=== PATIENT | female | born 1970 | race Caucasian/White ===

== ENCOUNTER 2025-07-06 22:30 | Outpatient (CLI) | payer BC, SELFPAY | END 2025-07-06 22:31 | disposition home or self-care (01) | LOC: AMB 07-09 18:52 | PROVIDERS: PCP Family Medicine; Visit Provider Emergency Medicine | DX: R55 Syncope and collapse (principal); R19.7 Diarrhea, unspecified | CPT/HCPCS: A0425; A0427 ==

== ENCOUNTER 2025-07-06 23:21 | Emergency (ER) | payer BC, SELFPAY ==
--- OUTSIDE RECORDS SUMMARY | 2025-07-06 23:23 | XMS_ITS | Clinical Summary ---
Author Organization [employer] [facility] Address [address] [place] [address] Care Team Providers Care Front Desk Supervisor Name Role Phone Renetta Partida MD Primary Care Provide r Allergies Active AllergyReactionsCriticalityNoted DateCommentsAspartameHeadacheLow 04/21/2011 Medications MedicationSigDispense QuantityRefillsLast FilledStart DateEnd DateStatus meclizine (ANTIVERT) 25 mg tablet Indications:Multiple sclerosisTake 1 tablet by mouth 3 times daily if needed. 100 tablet ctive acetaminophen (TYLENOL EXTRA STRGTH) 500 mg tablet Take 2 tablets by mouth every 6 hours if needed. Max acetaminophen dose: 4000mg in 24 hrs.Active cholecalciferol (Vitamin D-3) 2,000 unit capsule Take 1 Capsule (2,000 units) by mouth once daily.ctive vit A and D3 in cod liver oiL (cod liver oil) 1,250-135 unit cap Take by mouth.ctive triamcinolone (ARISTOCORT; KENALOG) 0.1 % cream Indications:RashApply topically to affected area(s) 3 times daily. 45 g ctive azithromycin (Zithromax Z-Jamari) 250 mg tablet Indications:Pneumonia of right middle lobe due to Streptococcus pneumoniaeTake 500 mg today and then 250 mg days 2-5 6 Tablet 5Active gabapentin (NEURONTIN) 600 mg tablet Indications:Multiple sclerosisTake 1 Tablet (600 mg) by mouth three times daily. 270 Tablet 5Active Ventolin HFA 90 mcg/actuation inhaler Indications:Mild intermittent asthma without complication (HC)Inhale 1-2 Puffs by mouth every 4 hours if needed for Shortness Of Breath. 18 g 5Active amoxicillin-clavulanate (AUGMENTIN) 875-125 mg tablet Indications:Pneumonia of right lower lobe due to infectious organismTake 1 Tablet by mouth every 12 hours for 7 days. 14 Tablet /5Active azithromycin (Zithromax Z-Jamari) 250 mg tablet Indications:lower respiratory infectionTake 500 mg today and then 250 mg days 2-5 6 Tablet 5Active Active Problems ProblemNoted DateDiagnosed DateVaginal Pap smear following hysterectomy for /02/2024Seronegative rheumatoid qhtwbuzki39/06/2022History of COVID-19007/25/2021ervical bxhrdqjvpqexx29/26/2018Mild intermittent asthma without zrfmydnxfvri45/18/2598Faqszfjb63/22/2013Multiple nvtgekklz56/20/2007 Resolved Problems ProblemNoted DateDiagnosed DateResolved DateUnspecified asthma(493.90)11/06/2006 06/06/2015 Encounters DateTypeDepartmentCare KpcuCkfdmdojnkz20/11/2025 2:00 PM CSTOffice Visit [facility] [address] [place] [address] Renetta Partida MD Physical (54 yo Female/Occasionally hears heart beat in right ear)05/30/2025 Hlcfli1205/27/20254904Hqhfoe88/04/2025 8:10 AM CSTAncillary Procedure [facility] [address] [facility] [place] [address] 05/23/20257507Eubtmy32/31/2025Travelfrom Last 3 Months Immunizations ImmunizationAdministration DatesNext DueTd, Preservative Free (age >= 7 Years) 10/31/2024,03/02/2009Tuberculin (PPD)02/11/2017,01/27/2017,08/23/2009 Family History Medical HistoryRelationNameCommentsHeart DiseaseBrother 1WilliamCancer-prostate FatherWilliamHeart DiseaseFatherWilliamHyperlipidemiaFatherWilliamOtherMother JoanIritis, polymyalgia rheumaticaRheum arthritisSisterAnneCancer-breastNo Family HistoryRelationNameStatusCommentsBrother 1WilliamAliveBrother 2Daniel AliveBrother 3PatrickAliveDaughterKathrynAliveFatherWilliamDeceasedMaternal GrandfatherDeceasedMaternal GrandmotherDeceasedMotherJoanAlivePaternal GrandfatherDeceasedPaternal GrandmotherDeceasedSisterAnneAliveSon 1NicholasAlive Son 2ZacheryAliveSon 3BenjaminAlive Social History Tobacco UseTypesPacks/DayYears UsedDateSmoking Tobacco: Every YpdNwhciyghoz444 Started: 1985Smokeless Tobacco: Never Tobacco Cessation:Ready to Q uit: Not Asked; Counseling Given: Not Answered Alcohol UseStandard Drinks/WeekCommentsNot Currently0 (1 standard drink = 0.6 oz pure alcohol)PHQ-2AnswerDate RecordedPHQ-2 TOTAL OGUEJ862Social ConnectionsAnswerDate RecordedDo you often feel lonely or isolated from those around you?lcohol UseAnswerDate RecordedHow often do you have a drink containing alcohol?How many drinks containing alcohol do you have on a typical day when you are drinking?How often do you have five or more drinks on one occasion?Financial Resource StrainAnswer Date RecordedDifficulty of Paying Living Owlqmpzj764/11/2025Difficulty of Paying Living ExpensesNot on file05/30/2025Food InsecurityAnswerDate RecordedDo you worry your food will run out before you are able to buy more? Transportation NeedsAnswerDate RecordedDoes lack of transportation keep you from medical appointments?Does lack of transportation keep you from work, meetings or getting things that you need?Housing StabilityAnswerDate RecordedWhat is your housing situation today?UtilitiesAnswerDate RecordedDo you have trouble paying for utilities (for example, heat, electricity, water, phone)?CommentsNoSex and Gender InformationValueDate RecordedSex Assigned at BirthNot on fileLegal SexFemale 08/02/2012 5:24 AM CSTGender IdentityNot on fileSexual OrientationStraight 07/24/2021 5:12 PM [facility] Obstetrics History GravidaParaTermPretermABIABSABEctopicMultipleLivingLive [id number] OutcomeGATotal LaborLabor/2nd/7qgQdxadrLwdQlmvMpapICXVafQ0A9SyuoWsjvYnckHajtYheo TermPara Last Filed Vital Signs Vital SignReadingTime TakenCommentsBlood Kvrtdxae369/7605/30/2025 2:05 PM [facility] [facility] Eegvj586605/30/2025 2:05 PM PMAAxbkvrqjfia23.3 ??C (97.4 ??F)08/04/2018 11:17 AM CSTRespiratory Hvob452607/22/2022 8:58 AM CDTOxygen Colhuttlpo504%05/30/2025 2:05 PM CSTInhaled Oxygen Concentration--Asnmat59.4 kg (133 lb 3.2 oz)05/30/2025 2:05 PM VKINylpvh740.9 cm (5' 6.5)05/30/2025 2:05 PM CSTBody Mass Index21.18 05/30/2025 2:05 PM [facility] Plan of Treatment DateTypeDepartmentCare Team (Latest Contact Info)Pxbfemautts04/05/2026 8:10 AM CSTAncillary Procedure [facility] [address] [place] [address] Health MaintenanceDue DateLast DoneCommentsHIV for age 15-65011/06/1983Hepatitis C screening for age 18-7904Hepatitis B series for 19+ (1 of 3 - 19+ 3- dose series)11/06/1987Pneumococcal series for age 50+ (1 of 2 - PCV)11/06/1987 Zoster (shingles) series for age 50+ (1 of 2)2018COVID-19 vaccine series (1 - 2024-26 season)2025Influenza Vaccine (#1)2025Mammogram for age 45-75, 04/23/2021, 08/16/2019, Additional history exists Fecal testing sDNA-FIT (Cologuard) for age 45-[address]Low Dose CT (for lung CA) age 50-801//10/2024, 11/24/2023, 05/14/2023, Additional history existsBMI (ht and wt on same day) for age 18+/05/2025, 04/29/2024, 05/22/2023, Additional history existsDepression screening for age 12+, 04/25/2022, 04/09/2021, Additional history existsLipids for age 45-75, 04/09/2021, 06/18/2018, Additional history existsTetanus zbtytvr69, 03/02/2009RSV vaccine for adults or (1 - 1-dose 75+ series)11/06/2043 Procedures Procedure NamePriorityDate/TimeAssociated DiagnosisCommentsCT CHEST SCREENING LOW DOSE WO XPANLZSFSfewutl97/04/2025 8:19 AM [facility] Encounter for screening for lung cancer Cigarette smoker XR MAMMO JULIO CESAR BILAT JIIAXRLleqdpu33/15/2024 7:58 AM CDT Visit for screening mammogram LIPID PANEL W REFLEX MEASURED WYWCdybnvi86/20/2023 7:46 AM CDT Lipid screening SDNA-FIT EXTERNAL (COLOGUARD)Quamuud0505/12/2022 6:30 AM CDT Screening for colon cancer from Last 3 Months or Most Recently Relevant to Health Maintenance Results * CT CHEST SCREENING LOW DOSE WO CONTRAST (05/23/2025 8:19 AM [facility] [facility])Anatomical RegionLateralityModalityComputed TomographySpecimen (Source)Anatomical Location / LateralityCollection Method / VolumeCollection TimeReceived Time Impressions 05/24/2025 10:33 AM [facility] [facility] Right lower lobe pneumonia, possibly aspiration pneumonia. LUNG-RADS CATEGORY 0: INCOMPLETE Additional lung cancer screening CT images and/or comparison to prior chest CT examinations is needed. ?? Findings are suggestive of inflammatory or infectious process. RECOMMENDATION: 1-3 month follow-up low-dose CT. Please note that all CT scans at this facility use dose modulation, iterative reconstruction and/or weight-based dosing when appropriate to reduce radiation dose to as low as reasonably achievable. ?? Dictated by: Eduar Jimenez MD @05/23/2025 12:22:24 PM /sp Narrative 05/24/2025 10:33 AM [facility] For Patients: As a result of the Century Cures Act, medical imaging exams and procedure reports are released immediately into your electronic medical record. ??You may view this report before your referring provider. ?? If you have questions, please contact your health care provider. CT CHEST SCREENING LOW-DOSE WITHOUT CONTRAST 05/23/2025 INDICATION: Lung cancer screening. History of smoking. TECHNIQUE: Low-dose lung cancer screening non-contrast CT chest. Dose reduction techniques were used. COMPARISON: 11/24/[address] FINDINGS: NODULES: Ground-glass opacities and subcentimeter nodularity in the right lung apex are stable and likely due to scarring. LUNGS AND PLEURA: New area of airspace consolidation with adjacent solid and ground-glass nodularity in the medial right lower lobe. Associated bronchial wall thickening and impaction. Emphysema. MEDIASTINUM: 4 cm ascending aorta, unchanged. CORONARY ARTERY CALCIFICATION: None. LIMITED UPPER ABDOMEN: Normal. MUSCULOSKELETAL: Normal. Authorizing ProviderResult TypeResult StatusRorye Lorena Partida MDCTFinal Result * XR MAMMO JULIO CESAR BILAT SCREEN (05/03/2024 7:58 AM CDT)Anatomical RegionLaterality ModalityBREASTS, Breast Left, Breast RightBilateralMammographySpecimen (Source)Anatomical Location / LateralityCollection Method / VolumeCollection TimeReceived Time Impressions 05/03/2024 2:45 PM CDT There is no radiographic evidence for malignancy. Recommend annual mammograms. MAMMOGRAM ASSESSMENT: ??ACR 1 Negative PATIENTS: You will also receive a letter with your examination results in an easy to read format. ??If you have questions about your results, please contact your referring provider. Narrative 05/03/2024 2:45 PM CDT For Patients: As a result of the Century Cures Act, medical imaging exams and procedure reports are released immediately into your electronic medical record. You may view this report before your referring provider. If you have questions, please contact your health care provider. XR MAMMO JULIO CESAR BILAT SCREEN [[id number]] CLINICAL HISTORY: ??This is an asymptomatic 53 y.o. patient. INDICATION FOR EXAM: Mammogram Screening. TECHNIQUE: CC & MLO views were obtained. This study was evaluated with the assistance of Computer-Aided Detection. Breast Tomosynthesis was used in interpretation. COMPARISON FILM: Yes 04/23/21 [facility] 08/16/19 [facility] FINDINGS: ??The breasts are heterogeneously dense, which may obscure small masses. There are no dominant masses, suspicious micro calcifications or areas of architectural distortion. Authorizing ProviderResult TypeResult StatusRorye Lorena Partida MDMAMMOFinal Result * LIPID PANEL W REFLEX MEASURED LDL (05/08/2023 7:46 AM CDT)ComponentValueRef RangeTest MethodAnalysis TimePerformed AtPathologist Signature CHOLESTEROL,[id number] - 199 mg/dL05/08/2023 3:17 PM [facility]-C[facility]TRAL LABORATORYComment: Cholesterol, Total Reference Ranges Desirable <200 mg/dL Borderline 200-239 mg/dL High >=240 mg/dL KGNGSJVGVSOMD04<150 mg/dL05/08/2023 3:17 PM [facility]AL LABORATORYHDL KNZMCSDSSXN73>40 mg/dL05/08/2023 3:17 PM [facility]AL LABORATORYNON-HDL UKBVKMZKHWD151<145 mg/dl05/08/2023 3:17 PM [facility]-CENTRAL LABORATORYCHOL/HDL RATIO2.42<4.501 3:17 PM [facility]ENTRAL LABORATORYLDL NVDZBSKSDFP75<=130 mg/dL05/08/2023 3:17 PM [facility]-CENTRAL LABORATORYVLDL CHOLESTEROL9<=30 mg/dL05/08/2023 3:17 PM [facility]-CENTRAL LABORATORYPROVIDER ORDERED ROZLSZJHASDH14/20/2023 3:17 PM CDTAL[facility]-CENTRAL LABORATORYSpecimen (Source)Anatomical Location / Laterality Collection Method / VolumeCollection TimeReceived TimeBloodBLOOD SPECIMEN / UnknownVenipuncture / Hfyknoj1105/08/2023 7:46 AM CDT1 7:47 AM CDT Narrative Authorizing ProviderResult TypeResult StatusRenetta Partida MDCHEMISTRY Final ResultPerforming OrganizationAddressCity/State/ZIP CodePhone Number [facility] [address] [place] [address], [place] * SDNA-FIT EXTERNAL (COLOGUARD) (05/12/2022 6:30 AM CDT)ComponentValueRef Range Test MethodAnalysis TimePerformed AtPathologist SignatureNONINV COLON CA DNA+OCC BLD SCRN STL-JXPXqighikrKhmkidkb78/27/2022 6:06 PM CDTEXNWA Event Center (CLIA #:[id number])Comment: NEGATIVE TEST RESULT. A negative Cologuard result indicates a low likelihood that a colorectal cancer (CRC) or advanced adenoma (adenomatous polyps with more advanced pre-malignant features) ??is present. The chance that a person with a negative Cologuard test has a colorectal cancer is less than 1in 1500 (negative predictive value >99.9%) or has an advanced adenoma is less than 5.3% (negative predictive value 94.7%). These data are based on a prospective cross-sectional study of 10,000individuals at average risk for colorectal cancer who were screened with both Cologuard and colonoscopy. (Dmitriy Dykes al, N Engl J Med 2014;370(14):0364-2511) The normal value (reference range) for this assay is negative. COLOGUARD RE-SCREENING RECOMMENDATION: Periodic colorectal cancer screening is an important part ofpreventive healthcare for asymptomatic individuals at average risk for colorectal cancer. ??Following a negative Cologuard result, the [place] [employer] and U.S. Multi-Society Task Force screening guidelines recommend a Cologuard re-screening interval of 3 years. References: [place] [employer] Guideline for Colorectal Cancer Screening: https://www.cancer.or g/cancer/otfku-yzecut-jfhqtm/esojxzkgj-zcsspksax-hmgzrqa/acs-recommendations.htm l.; Mic DK, Elizabeth CR, Carter DiegoK, Colorectal Cancer Screening: Recommendations for Physicians and Patients from the U.S. Multi-Society Task Force on Colorectal Cancer Screening , Am J Gastroenterology 2017; 112:6684-5513. TEST DESCRIPTION: Composite algorithmic analysis of stool DNA-biomarkers with hemoglobin immunoassay. ?? Quantitative values of individual biomarkers are not reportable and are not associated with individual biomarker result reference ranges. Cologuard is intended for colorectal cancer screening ofadults of either sex, 45 years or older, who are at average-risk for colorectal cancer (CRC). Cologuard has been approved for use by the U.S. FDA. The performance of Cologuard was established in a cross sectional study of average-risk adults aged 50-84. Cologuard performance in patients ages 45 to 49 years was estimated by sub-group analysis of near-age groups. Colonoscopies performed for a positive result may find as the most clinically significant lesion: colorectal cancer [4.0%], advanced adenoma (including sessile serrated polyps greater than or equal to 1cm diameter) [20%] or non- advanced adenoma [31%]; or no colorectal neoplasia [45%]. These estimates are derived from a prospective cross-sectional screening study of 10,000 individuals at average risk for colorectal cancer who were screened with both Cologuard and colonoscopy. (Dmitriy Dykes al, N Engl J Med 2014;370(14):3597-0206.) Cologuard may produce a false negative or false positive result (no colorectal cancer or precancerous polyp present at colonoscopy follow up). A negative Cologuard test result does not guarantee the absence of CRC or advanced adenoma (pre-cancer). The current Cologuard screening interval is every 3 years. ([place] [employer] and U.S. Multi-Society Task Force). Cologuard performance data in a 10,000 patient pivotal study using colonoscopy as the reference method can be accessed at the following location: www.[facility].Bankfeeinsider.com/results. Additional description of the Cologuard test process, warnings and precautions can be found at www.[employer].com. Specimen (Source)Anatomical Location / LateralityCollection Method / Volume Collection TimeReceived TimeStool specimen (specimen) (Rectum)05/12/2022 6:30 AM CDT1 3:08 PM CDT Narrative Authorizing ProviderResult TypeResult StatusRenetta Partida MDURINEFinal ResultPerforming OrganizationAddressCity/State/ZIP CodePhone Number [employer] (CLIA #:[id number]) [address] [place] [address], from Last 3 Months or Most Recently Relevant to Health Maintenance Insurance Care Teams Team MemberRelationshipSpecialtyStart DateEnd Renetta Partida MD [address] [place] [address] [facility]12/04/05
[2025-07-06 23:27] VITALS: BP 106/72; PULSE 81; RESP 19; TEMP 36.2; O2SAT 97; BMI 20.4
--- NOTE | 2025-07-06 23:41 | CRLHL7_ITS ---
For Patients: As a result of the Cures Act, medical imaging exams and procedure reports are released immediately into your electronic medical record. You may view this report before your referring provider. If you have questions, please contact your health care provider. INDICATION: Cough, history of aspiration TECHNIQUE: Chest radiograph 2 views COMPARISON: None FINDINGS: Mediastinum: The right mediastinal border is convex in appearance which may be due to an enlarged tortuous ascending aorta. The heart silhouette is normal in size and morphology. Lung: Both lungs are unremarkable in appearance. No sign of pleural effusion seen. No pneumothorax is identified. Bone and Soft tissue: Unremarkable. IMPRESSIONS: 1. No acute cardiopulmonary disease is seen. 2. The right mediastinal border is convex in appearance which may be due to an enlarged tortuous ascending aorta. Dictated by Edinson Dove MD @ 07/06/2025 11:59:56 PM Dictated by: Edinson Dove MD @ 07/07/2025 00:00:00 (Electronically Signed)
--- NOTE | 2025-07-07 00:04 | ED.GENADULT ---
HPI - General Adult General Chief complaint: Diarrhea Stated complaint: Diarrhea and hypotension Time Seen by Provider: 07/06/25 23:41 History of Present Illness HPI narrative: This is a pleasant 54-year-old female brought to the ER today by EMS from her home. She has a past medical history of multiple sclerosis, also history of frequent aspiration. She reports that she had an aspiration pneumonia in late April/early May and required a course of combination Augmentin and Azithromycin for that. She had another choking/aspiration event a couple of weeks ago and has had a mild coughs after that. Her doctor, the [facility] clinic, has put her back on antibiotics (Augmentin and Azithromycin) and she took her 1st dose of those antibiotics this morning. After dinner she started having some upper abdominal bloating and felt like her food was not ?digesting? or leaving her stomach. Beginning later this evening started developed diarrhea. She had large volume watery brown, somewhat junky diarrhea and then had a subsequent diarrhea that was all liquidy brown. She got very weak and lightheaded and presyncopal on the toilet sexually moved off the toilet to lay down on her bathroom floor. She was incontinent idea diarrhea 1 time on the bathroom floor. She got off the bathroom floor and was weak and dizzy but managed to get to her kitchen table. Her called 911 because of her weakness. When paramedics responded she was initially hemodynamically stable and then had another presyncopal event. Paramedics noted that her heart rate dropped from the 80s to 60s and her blood pressure temporarily dropped to the 50s/30s. EMS established an IV and administered almost 500 mL of saline EN route. Blood pressures have been normal since then. She is not having a fever. No bloody mucousy diarrhea. No nausea or vomiting. No chest pain. No palpitations. Related Data Home Medications ?Medication ?Instructions ?Recorded ?Confirmed albuterol sulfate 90 mcg/actuation 1 - 2 puff inhalation Q4H PRN 05/09/24 07/06/25 aerosol inhaler (Ventolin HFA) dyspnea gabapentin 600 mg tablet 600 mg PO 3XD 05/09/24 07/06/25 cod liver oil 1 cap PO ONCE 10/30/24 07/06/25 meclizine 25 mg tablet 25 mg PO QDAY PRN 10/30/24 07/06/25 amoxicillin 875 mg-potassium 1 tab PO BID 07/06/25 07/06/25 clavulanate 125 mg tablet azithromycin 250 mg tablet 250 mg PO DIRECTED 07/06/25 07/06/25 cholecalciferol (vitamin D3) 50 2,000 unit PO BID 07/06/25 07/06/25 mcg (2,000 unit) tablet (Vitamin D3) Allergies Allergy/AdvReac Type Severity Reaction Status Date / Time No Known Drug Allergies Allergy Verified 07/06/25 23:43 [facility] Social History Smoking Status: Current every day smoker How often do you have a drink containing alcohol: never How often do you have six or more drinks on one occasion: Never AUDIT-C Alcohol total score: 0 Non-prescribed substance use: denies use service: No Exam Narrative: Exam Narrative: Constitutional: Appears well-developed and well-nourished. Alert. Conversant. Polite. She is shivering but she think she is cold from the ambulance ride. I got her an extra warm blanket. HENT: Head: Atraumatic. Nose: Nose normal. Mouth/Throat: Oral mucosa is clear and somewhat dry but not desiccated or cracked. no trismus. Pharynx normal. Tonsils symmetric. No tonsillar enlargement, erythema, or exudate. Eyes: Conjunctivae normal. EOM normal. Pupils equal, round, and reactive to light. No scleral icterus. Neck: Normal range of motion. Neck supple. No tracheal deviation present. Cardiovascular: Normal rate, regular rhythm. No gallop. No friction rub. No murmur heard. Symmetric radial artery pulses Pulmonary/Chest: Effort normal. No stridor. No respiratory distress. No wheezes. No rales. No rhonchi . No tenderness. Abdominal: Soft. Bowel sounds normal. No distension. No mass. No tenderness, but the patient notes that with palpation she feels like I am pushing on loops of bowel that are dilated with gas. There is no distention or tympany.. No rebound. No guarding. Musculoskeletal: RUE: Normal range of motion. No tenderness. No deformity LUE: Normal range of motion. No tenderness. No deformity RLE: Normal range of motion. No edema. No tenderness. No deformity LLE: Normal range of motion. No edema. No tenderness. No deformity Neurological: Alert and oriented to person, place, and time. Normal strength. CN II-VII intact. No sensory deficit. GCS eye subscore is 4. GCS verbal subscore is 5. GCS motor subscore is 6. Normal coordination Skin: Skin is warm and dry. No rash noted. No pallor. Normal capillary refill. Psychiatric: Normal mood. Normal affect. Const: Vital Signs, click to edit/add: Vital Signs - 24 hr 07/06/25 23:27 Temperature 97.1 F L Pulse Rate [Left P ulse Oximeter] 81 Respiratory Rate 19 Blood Pressure [Le ft Upper Arm] 106/72 Pulse Oximetry 97 Oxygen Delivery Me thod Room Air Course Vital Signs Vital signs: Initial Vital Signs Temperature 97.1 F L 07/06/25 23:27 Temperature Source Temporal Artery Scan 07/06/25 23:27 Pulse Rate 81 07/06/25 23:27 Pulse Rhythm Regular 07/06/25 23:27 Respiratory Rate 19 07/06/25 23:27 Blood Pressure 106/72 07/06/25 23:27 Blood Pressure Mean 83 07/06/25 23:27 Pulse Oximetry 97 07/06/25 23:27 Oxygen Delivery Method Room Air 07/06/25 23:27 Vital Signs Temperature 97.1 F L 07/06/25 23:27 Pulse Rate 81 07/06/25 23:27 Respiratory Rate 19 07/06/25 23:27 Blood Pressure 106/72 07/06/25 23:27 Pulse Oximetry 97 07/06/25 23:27 Oxygen Delivery Method Room Air 07/06/25 23:27 Temperature 97.1 F L 07/06/25 23:27 Pulse Rate 81 07/06/25 23:27 Respiratory Rate 19 07/06/25 23:27 Blood Pressure 106/72 07/06/25 23:27 Pulse Oximetry 97 07/06/25 23:27 Oxygen Delivery Method Room Air 07/06/25 23:27 Medical Decision Making MDM Narrative Medical decision making narrative: Pleasant 54-year-old female with history of MS as well as a history of recent aspiration pneumonia, currently back on her 2nd course of antibiotics in the past 6 weeks. She is brought to the ER today by EMS because she developed watery brown diarrhea this evening after dinner and then had a couple of syncopal/presyncopal episodes. In terms of her presyncope we did place the patient on the ekg monitor. Based on history provided I would favor this is probably a vasovagal event. Her 12 lead EKG shows a sinus rhythm. No sign of ischemia. No peaked T-waves or QRS widening to suggest hyperkalemia. Abdominal exam is nontender and nondistended this time. At this point I do not think she has any acute surgical emergency such as appendicitis, colitis, perforated diverticulitis. I have ordered laboratory workup to look at blood counts, electrolytes, kidney function, blood sugar. I have ordered IV fluids and anti IV anti emetic. Because of her recurrent aspiration pneumonia, we did do a careful lung exam and I feel lungs are clear. We did obtain a chest x-ray which is read as clear. She is not hypoxic (sats 99-100% room air). Discussed with my overnight partner, Dr. Duque. He will follow-up on the patient's laboratory workup once those results are back and recheck the patient after she finished her IV fluid bolus. If she is feeling better, and labs are reassuring, anticipate she may be able to manage at home. In terms of the patient's diarrhea-The patient's symptoms and exam could be consistent with a viral GI infection. However with recent antibiotics, consider C diff. I have ordered a stool C diff, but the patient has not had any diarrhea yet here in the ER. There is no high fever, severe pain, bilious or bloody emesis, blood or mucous in the stool, severe abdominal pain, or other concerning signs for a bacterial enteritis. No recent travel or high risk exposure for bacterial pathogen. Clinical impression at this time 1. Diarrhea 2. Syncope/presyncope Imaging Data Chest x-ray: Attestation: I have reviewed the pertinent imaging results. Radiologist's impression: IMPRESSIONS: 1. No acute cardiopulmonary disease is seen. 2. The right mediastinal border is convex in appearance which may be due to an enlarged tortuous ascending aorta. ECG Data Attestation: I personally reviewed and interpreted this ECG as follows: Interpretation: Normal sinus rhythm Rate 80 beats per minute TN interval 126 No delta waves No pathologic Q-waves QRS axis is normal. Fairly tall R-waves in V5 and V6, but does not quite meet criteria for LVH. ST segment UA without any sign of acute ischemia. There is no peaked T-waves. QT 358, QTC 412 Discharge Plan Discharge Prescriptions: No Action albuterol sulfate [Ventolin HFA] 90 mcg/actuation HFA aerosol inhaler 1 - 2 puff inhalation Q4H PRN (Reason: dyspnea) gabapentin 600 mg tablet 600 mg PO 3XD meclizine 25 mg tablet 25 mg PO QDAY PRN cod liver oil Capsule 1 cap PO ONCE cholecalciferol (vitamin D3) [Vitamin D3] 50 mcg (2,000 unit) tablet 2,000 unit PO BID azithromycin 250 mg tablet 250 mg PO DIRECTED amoxicillin-pot clavulanate 875-125 mg tablet 1 tab PO BID Follow Up/Referrals: Renetta Partida MD [Primary Care Provider, Family Practice]
[2025-07-07 00:23] LABS: Lactate* 2.2 mmol/L (0.5-1.9)
[2025-07-07 00:26] LABS: Hematocrit* 45.2 % (33.0-51.0); Hemoglobin* 14.5 gm/dL (12.0-16.0); Immature Granulocytes Abs Auto 0.01 K/uL (0.00-0.30); Immature Granulocytes Pct Auto 0.1 %; Mean Corpuscular HGB Conc 32 gm/dL (32-36); Mean Corpuscular Hemoglobin 33 pg (26-34); Mean Corpuscular Volume 103 fL (80-100); RDW Coefficient of Variation % 11.7 % (11.5-15.5); Red Blood Count* 4.39 m/uL (4.00-5.20); White Blood Count* 7.04 K/uL (4.50-11.00)
[2025-07-07 00:27] LABS: Lymphocytes Absolute Auto 0.40 K/uL (0.90-2.90); Slide Review Reflex No
[2025-07-07 00:29] VITALS: PULSE 83; O2SAT 97
[2025-07-07 00:30] VITALS: BP 116/71; PULSE 81; RESP 18; O2SAT 99
[2025-07-07 00:39] LABS: Albumin* 4.1 g/dL (3.3-5.0); Chloride* 100 mmol/L (96-114); Sodium* 134 mmol/L (135-149)
[2025-07-07 00:40] LABS: Potassium* 4.1 mmol/L (3.6-5.1)
[2025-07-07 00:42] LABS: Alanine Aminotransferase* 22 U/L (4-35); Alkaline Phosphatase* 95 U/L (40-150); Anion Gap 7 mEq/L (7-15); Aspartate Amino Transferase* 25 U/L (12-35); Bilirubin Total* 0.5 mg/dL (0.1-1.5); Blood Urea Nitrogen* 18 mg/dL (7-30); Calcium* 8.7 mg/dL (8.4-10.6); Carbon Dioxide* 27 mmol/L (20-32); Creatinine* 0.7 mg/dL (0.5-1.5); Est. Creatinine Clearance* 83.54; Estimated Glomerular Filt Rate 101 ml/min; Glucose* 116 mg/dL (60-115); Total Protein* 6.7 g/dL (6.0-8.3)
[2025-07-07 01:02] VITALS: BP 119/73; PULSE 78; RESP 17; O2SAT 97
== END 2025-07-07 01:34 | disposition home or self-care (01) ==
PROVIDERS: Emergency Provider Emergency Medicine; PCP Family Medicine
DX: R55 Syncope and collapse (principal); I95.9 Hypotension, unspecified; R19.7 Diarrhea, unspecified
CPT/HCPCS: 36415; 71046; 80053; 83605; 85025; 87493; 93005; 94761; 96360; 99283; 99284; J7030